=== PATIENT | female | born 1995 | race Caucasian/White ===

== ENCOUNTER 2020-05-15 10:56 | Emergency (ER) | payer OTHER ==
[~2020-05-15] VITALS: Ht 160 cm; Wt 68.6 kg
--- NOTE | 2020-05-15 11:00 | NUR ---
[facility] 132 BLENDER 300mcg fentanyl BLENDER
--- NOTE | 2020-05-15 11:25 | NUR ---
PT TRANSPORTED TO [facility]
[2020-05-15 11:30] LABS: BASOPHILS % (AUTO) 0 % (0-1); EOSINOPHILS % (AUTO) 0 % (1-7); LYMPHOCYTES % (AUTO) 12 % (22-44); MD NO; MEAN CORPUSCULAR HGB CONC 33.6 g/dL (32.4-35.8); MEAN PLATELET VOLUME 8.1 fL (7.4-10.4); MONOCYTES % (AUTO) 6 % (2-9); NEUTROPHILS % (AUTO) 82 % (42-75); PLATELET COUNT 288 x10^3/uL (130-400); RED CELL DISTRIBUTION WIDTH 12.5 % (9.6-15.2)
[2020-05-15 11:41] LABS: ALBUMIN 4.2 g/dL (3.4-5.0); ANION GAP 5 mmol/L (5-15); CALCIUM 8.8 mg/dL (8.5-10.1); CHLORIDE 109 mmol/L (98-107); CREATININE 0.86 mg/dL (0.55-1.02)
[2020-05-15 13:10] LABS: MICROSCOPIC AUTO
--- NOTE | 2020-05-15 13:55 | NUR ---
JEWELRY RACKER MD AT BEDSIDE.
[2020-05-15 14:39] VITALS: BP 130/78
== END 2020-05-15 14:42 | disposition home or self-care (01) ==
LOC: ED 14:27
DX: O20.0 Threatened abortion (principal); R10.2 Pelvic and perineal pain; F17.210 Nicotine dependence, cigarettes, uncomplicated; Z3A.08 8 weeks gestation of pregnancy; Z3A.01 Less than 8 weeks gestation of pregnancy
CPT/HCPCS: 36415; 76830; 80048; 81001; 82040; 84702; 84703; 85025; 86850; 86900; 99284

== ENCOUNTER 2020-05-17 11:41 | Emergency (ER) | payer OTHER ==
[~2020-05-17] VITALS: Ht 160 cm; Wt 70.4 kg
--- NOTE | 2020-05-17 11:57 | NUR ---
PT WAS SEEN 2 DAYS AGO FOR ABDOMINAL PAIN AND WAS TOLD SHE . TRANSVAGINAL U/S WAS INCONCLUSIVE FOR IUP. PT WAS TOLD TO COME BACK TODAY FOR HCG LEVEL CHECK. SHE HAS NOT HAD ANY CRAMPING OR ABD PAIN. SMALL AMOUNTS OF LIGHT BROWN BLOOD. PATIENT IS RESTING COMFORTABLY IN BED. CALL LIGHT WITHIN REACH.
--- NOTE | 2020-05-17 12:24 | NUR ---
PATIENT TO ULTRASOUND
--- NOTE | 2020-05-17 12:53 | NUR ---
patient back from ultrasound
--- NOTE | 2020-05-17 12:58 | NUR ---
PATIENT RESTING COMFORTABLY, UPDATED VITALS, CONTINUOUS SPO2 AND CYCLING VITALS. CALL LIGHT WITHIN REACH. NO NEEDS VERBALIZED AT THIS TIME.
[2020-05-17 13:10] LABS: BASOPHILS % (AUTO) 1 % (0-1); EOSINOPHILS % (AUTO) 1 % (1-7); LYMPHOCYTES % (AUTO) 27 % (22-44); MEAN CORPUSCULAR HEMOGLOBIN 33.4 pg (27.0-34.8); MEAN CORPUSCULAR HGB CONC 34.6 g/dL (32.4-35.8); MEAN PLATELET VOLUME 8.2 fL (7.4-10.4); MONOCYTES % (AUTO) 10 % (2-9); NEUTROPHILS % (AUTO) 62 % (42-75); PLATELET COUNT 302 x10^3/uL (130-400); RED BLOOD COUNT 4.41 x10^6/uL (3.82-5.3); RED CELL DISTRIBUTION WIDTH 12.5 % (9.6-15.2)
[2020-05-17 13:11] LABS: MD NO
--- NOTE | 2020-05-17 13:37 | NUR ---
PT TO BE NPO AND GOING TO SURGERY.
[2020-05-17] MEDS ORDERED: SODIUM CHLORIDE FLUSH 10ML SYR IVF ONE (14:00)
--- NOTE | 2020-05-17 15:40 | NUR ---
PT'S MOTHER SONYA [phone]
[2020-05-17 16:10] VITALS: BP 120/69
--- NOTE | 2020-05-17 16:10 | NUR ---
PATIENT RESTING COMFORTABLY. DR AT BEDSIDE DISCUSSING SURGERY PROCEDURE. CALL LIGHT WITHIN REACH. DISCUSSED SPEAKING WITH PATIENTS MOTHER. SHE STATED IT WAS OK TO DISCUSS HER CONDITION WITH HER. MOTHER ANDREW AND HER NUMBER IS IN PREVIOUS NOTES. NO ADDITIONAL NEEDS AT THIS TIME.
--- NOTE | 2020-05-17 16:10 | NUR ---
WORKING AT , ORDERED TYPE AND CROSS, CONSENT SIGNED BY
--- NOTE | 2020-05-17 16:31 | NUR ---
REPORT TO MELISSA IN THE OR.
[2020-05-17] MEDS ORDERED: FENTANYL PF 100 MCG/2ML ONE ×2 (16:35→17:38)
[2020-05-17] MEDS ORDERED: MIDAZOLAM 1 MG/ML, 2ML ONE (16:35)
[2020-05-17] MEDS ORDERED: SODIUM CHLORIDE 0.9% PF 10ML ONE (16:37)
[2020-05-17] MEDS ORDERED: ROCURONIUM 10MG/ML,5ML ONE (16:39)
[2020-05-17] MEDS ORDERED: CEFAZOLIN 1,000 MG ONE (16:39)
[2020-05-17] MEDS ORDERED: SUCCINYLCHOLINE 20 MG/ML, 10ML ONE (16:39)
[2020-05-17] MEDS ORDERED: PROPOFOL 10 MG/ML, 20ML ONE (16:39)
[2020-05-17] MEDS ORDERED: ONDANSETRON 2MG/ML, 2ML ONE (16:39)
[2020-05-17] MEDS ORDERED: SILVER NITRATE STICK TP ONE (16:42)
[2020-05-17] MEDS ORDERED: EPINEPHRINE 1 MG/ML, 1ML ONE (16:42)
--- NOTE | 2020-05-17 16:42 | NUR ---
PATIENT TO OR.
[2020-05-17] MEDS ORDERED: BUPIVACAINE 0.25% ONE (16:43)
[2020-05-17] MEDS ORDERED: THROMBIN 20,000 UNIT VIAL TP ONE (16:43)
[2020-05-17] MEDS ORDERED: DEXAMETHASONE 4 MG/ML, 5ML ONE (16:58)
[2020-05-17] MEDS ORDERED: KETOROLAC 30 MG/1 ML ONE ×2 (16:58→17:10)
[2020-05-17] MEDS ORDERED: LIDOCAINE-MPF 2% ,5ML ONE (16:58)
[2020-05-17] MEDS ORDERED: ACETAMINOPHEN 325 MG TABLET PO PRN (17:00)
[2020-05-17] MEDS ORDERED: HYDROmorphone 1 MG/ML, 1ML INJ IVPush PRN (17:00)
[2020-05-17] MEDS ORDERED: OXYcodone 5 MG/5 ML ORAL.SOL UDC PO PRN (17:00)
[2020-05-17] MEDS ORDERED: hydrALAzine 20 MG/ML, 1ML IV PRN (17:00)
[2020-05-17] MEDS ORDERED: FENTANYL PF 100 MCG/2ML IV PRN (17:00)
[2020-05-17] MEDS ORDERED: EPHEDRINE 50 MG/ML, 1ML IVPush PRN (17:00)
[2020-05-17] MEDS ORDERED: LABETALOL 5MG/ML, 20ML IV PRN (17:00)
[2020-05-17] MEDS ORDERED: PROMETHAZINE 25 MG/ML, 1ML IVPush PRN (17:00)
[2020-05-17] MEDS ORDERED: ONDANSETRON 2MG/ML, 2ML IVPush PRN (17:00)
[2020-05-17] MEDS ORDERED: SUGAMMADEX 200 MG/2 ML IVPush ONE (17:10)
[2020-05-17] MEDS ORDERED: IBUP-1222 PO (18:53)
[2020-05-17] MEDS ORDERED: OXYC-302 PO (18:53)
[2020-05-17] MEDS ORDERED: ONDA4TAB7 PO (18:54)
== END 2020-05-17 19:35 | disposition home or self-care (01) ==
LOC: ED 15:21
DX: O00.101 Right tubal pregnancy without intrauterine pregnancy (principal); Z20.828 Contact with and (suspected) exposure to other viral communicable diseases; O46.91 Antepartum hemorrhage, unspecified, first trimester; R10.2 Pelvic and perineal pain; Z3A.01 Less than 8 weeks gestation of pregnancy
CPT/HCPCS: 36415; 59151; 76801; 84702; 85025; 86850; 86900; 87635; 99285; J0171; J0330; J0690; J1885; J2250; J2405; J2704; J3010; 88305; J1100